=== PATIENT | female | born 1970 ===

== ENCOUNTER 2022-02-25 07:41 | Inpatient (IN) | payer BC ==
[~2022-02-25 07:41] MED LIST: Bupivacaine 0.5% 30 ML SDV ONE; Lactated Ringers 1,000 ML IV SCH; Lidocaine 1% 5 ML VIAL ONE; Lidocaine 1%/Sod Bicarbonate in NS 8.4% 1 ML Syringe IDERM PRN; Midazolam 1 MG/ML 2 ML SDV ONE; Propofol 200 MG/20 ML SDV ONE; Rocuronium 50 MG/5 ML Vial ONE; Scopolamine 1.5 MG Transdermal Patch TOP ONE; Sodium Chloride 0.9% 10 ML Syringe FLUSH PRN; Sodium Chloride 0.9% 10 ML Syringe FLUSH SCH; Succinylcholine 200 MG/10 ML MDV ONE; fentaNYL 100 MCG/2 ML SDV ONE
[2022-02-25 07:52] LABS: ESTIMATED GFR > 60 mL/min (>60)
[2022-02-25] MEDS ORDERED: ceFAZolin 1 GM Vial ONE (07:53)
[2022-02-25] MEDS ORDERED: Ondansetron 4 MG/2 ML SDV IVPUSH PRN ×2 (08:00→11:50)
[2022-02-25] MEDS ORDERED: HYDROmorphone 0.5 MG/0.5 ML Syringe IVPUSH PRN (08:00)
[2022-02-25] MEDS ORDERED: Ondansetron 4 MG/2 ML SDV ONE (08:16)
[2022-02-25] MEDS ORDERED: Dexamethasone 4 MG/ML 5 ML MDV ONE (08:16)
[2022-02-25] MEDS ORDERED: ePHEDrine 50 MG/ML SDV ONE (08:19)
[2022-02-25] MEDS ORDERED: Neostigmine Methylsulfate 10 MG/10 ML MDV ONE (09:02)
[2022-02-25] MEDS ORDERED: HYDROmorphone 0.5 MG/0.5 ML Syringe ONE (09:03)
[2022-02-25] MEDS ORDERED: Rocuronium 50 MG/5 ML Vial ONE (09:32)
[2022-02-25] MEDS ORDERED: Lactated Ringers 1,000 ML ONE (09:42)
[2022-02-25] MEDS: fentaNYL 100 MCG/2 ML SDV IVPUSH PRN ×2 (10:42→10:55)
[2022-02-25] MEDS ORDERED: Morphine 2 MG/ML SYRINGE IVPUSH PRN (11:50)
[2022-02-25] MEDS: Acetaminophen/oxyCODONE 325-5 MG Tab PO PRN ×2 (11:58→18:45)
[2022-02-25] MEDS: Lactated Ringers 1,000 ML IV SCH ×2 (15:19→21:04)
[2022-02-25] MEDS: Ketorolac 15 MG/ML SDV IVPUSH SCH ×2 (15:24→21:07)
[2022-02-25] MEDS: Docusate Sodium 100 MG Cap PO SCH (21:14)
[2022-02-26] MEDS: Ketorolac 15 MG/ML SDV IVPUSH SCH (02:58)
[2022-02-26] MEDS: Docusate Sodium 100 MG Cap PO SCH ×2 (08:18→21:09)
[2022-02-26] MEDS: Acetaminophen/oxyCODONE 325-5 MG Tab PO PRN ×3 (08:20→22:02)
[2022-02-26] MEDS ORDERED: FLUoxetine 20 MG Cap PO SCH (09:00)
[2022-02-26] MEDS: Ibuprofen 600 MG Tab PO PRN ×3 (09:30→22:01)
[2022-02-27] MEDS: Ibuprofen 600 MG Tab PO PRN ×2 (04:11→12:03)
[2022-02-27] MEDS: Acetaminophen/oxyCODONE 325-5 MG Tab PO PRN ×2 (04:12→12:03)
[2022-02-27] MEDS: Docusate Sodium 100 MG Cap PO SCH (08:12)
== END 2022-02-27 12:10 | disposition home or self-care (01) | DRG 519 ==
LOC: JD.OB 07:41 → JD.MS 02-26 13:35 → JD.OB 02-26 13:37
PROVIDERS: ADMIT Obstetrics & Gynecology; ATTEND Obstetrics & Gynecology
PROC: 0UT90ZZ Resection of Uterus, Open Approach (ICD-10-PCS; principal; 2022-02-25)
PROC: 0UT70ZZ Resection of Bilateral Fallopian Tubes, Open Approach (ICD-10-PCS; 2022-02-25)
DX: D25.9 Leiomyoma of uterus, unspecified (principal); N92.0 Excessive and frequent menstruation with regular cycle; D50.0 Iron deficiency anemia secondary to blood loss (chronic); Z88.0 Allergy status to penicillin; Z79.899 Other long term (current) drug therapy; M79.7 Fibromyalgia; Z98.890 Other specified postprocedural states
CPT/HCPCS: 00840; 36415; 80048; 85025; 85027; 86850; 86900; 86901; A9270-GY; J0330; J0690; J1100; J1170; J1885; J2250; J2405; J2704; J2710; J3010; J3490; J7120